=== PATIENT | male | born 1965 | race Caucasian/White ===

== ENCOUNTER 2017-08-21 13:17 | Emergency (ER) | payer MEDICAID, OTHER ==
[~2017-08-21] VITALS: Ht 177.8 cm; Wt 80.0 kg
[2017-08-21] MEDS ORDERED: SODIUM CHLORIDE 0.9% 1,000 ML IV ONE (14:19)
[2017-08-21] MEDS ORDERED: AZITHROMYCIN 500 MG TABLET PO ONE (14:30)
[2017-08-21] MEDS ORDERED: MORPHINE SULFATE 4 MG/ML, 1ML IVPush PRN (14:30)
[2017-08-21] MEDS ORDERED: SODIUM CHLORIDE 0.9% 1,000ML IVBOLUS ONE (14:30)
[2017-08-21] MEDS ORDERED: AZITHROMYCIN 500 MG TABLET ONE (14:30)
[2017-08-21] MEDS ORDERED: SODIUM CHLORIDE FLUSH 10ML SYR IVF ONE (14:30)
[2017-08-21] MEDS ORDERED: ONDANSETRON 2MG/ML, 2ML IVPush ONE (14:30)
[2017-08-21] MEDS ORDERED: CEFTRIAXONE 250 MG IM ONE (14:30)
[2017-08-21] MEDS ORDERED: morphine SULFATE 10 MG/ML, 1ML ONE (14:31)
[2017-08-21] MEDS ORDERED: ONDANSETRON 2MG/ML, 2ML ONE (14:31)
[2017-08-21] MEDS ORDERED: CEFTRIAXONE 250 MG ONE (14:31)
[2017-08-21 14:56] LABS: HEMATOCRIT 47.7 % (39.2-51.8); HEMOGLOBIN 16.2 g/dL (13.7-18.0); WHITE BLOOD COUNT 11.1 x10^3/uL (3.4-10)
[2017-08-21 15:00] LABS: ASPARTATE AMINO TRANSFERASE 15 U/L (15-37); BLOOD UREA NITROGEN 11 mg/dL (7-18)
[2017-08-21] MEDS ORDERED: CEFTRIAXONE PMX 1GM/50ML 50 ML IVPB ONE (16:00)
[2017-08-21] MEDS ORDERED: KETOROLAC 30 MG/1 ML IVPush ONE (16:00)
[2017-08-21] MEDS ORDERED: KETOROLAC 30 MG/1 ML ONE (16:03)
[2017-08-21] MEDS ORDERED: CEFTRIAXONE PMX 1GM/50ML 50 ML ONE (16:03)
[2017-08-21 16:12] VITALS: BP 117/72
== END 2017-08-21 17:53 | disposition home or self-care (01) ==
LOC: ED 16:17
DX: N45.3 Epididymo-orchitis (principal); N41.0 Acute prostatitis; R31.9 Hematuria, unspecified; I10 Essential (primary) hypertension
CPT/HCPCS: 36415; 76870; 80053; 81001; 85025; 87086; 87491; 87591; 96361; 96365; 96375; 99285; J0696; J1885; J2405; J7030

== ENCOUNTER 2018-01-25 05:07 | Emergency (ER) | payer SELFPAY ==
[~2018-01-25] VITALS: Ht 175.3 cm; Wt 75.2 kg
[2018-01-25] MEDS ORDERED: ALBUTEROL/IPRATROPIUM 2.5MG/0.5MG, 3 ML NPPB ONE (05:30)
[2018-01-25] MEDS ORDERED: ALBUTEROL/IPRATROPIUM 2.5MG/0.5MG, 3 ML ONE (05:55)
[2018-01-25 07:53] VITALS: BP 140/96
== END 2018-01-25 08:05 | disposition home or self-care (01) ==
LOC: ED 07:55
DX: J15.8 Pneumonia due to other specified bacteria (principal); B97.89 Other viral agents as the cause of diseases classified elsewhere
CPT/HCPCS: 71046; 93005; 94640; 99284; J7620